=== PATIENT | male | born 1960 | race Caucasian/White ===

== ENCOUNTER 2016-05-30 18:04 | Inpatient (IN) | payer OTHER ==
[~2016-05-30] VITALS: Ht 175.3 cm; Wt 88.9 kg
[2016-05-30 18:43] LABS: RED BLOOD COUNT 4.77 M/UL (4.20-5.50); WHITE BLOOD COUNT 16.9 K/UL (4.5-11.0)
[2016-05-30 19:19] LABS: BUN/CREATININE RATIO 11 (0-10)
[2016-05-30] MEDS ORDERED: ZYRTEC10 MG PO (23:13)
[2016-05-30] MEDS ORDERED: LIPITOR TAB 1010 MG PO (23:14)
[2016-05-30] MEDS ORDERED: SINGULAIR10 MG PO (23:14)
[2016-05-30] MEDS ORDERED: METFORMIN HCL500 MG PO (23:14)
[2016-05-30] MEDS ORDERED: PRILOSEC OTC20 MG PO (23:15)
[2016-05-30] MEDS ORDERED: SYNTHROID 50 M50 MCG PO (23:17)
[2016-05-30] MEDS ORDERED: ASPIRIN CHEWABL81 MG PO (23:19)
[2016-05-31 05:16] LABS: HEMOGLOBIN 13.1 gm/dl (14.0-17.5); RED BLOOD COUNT 4.46 M/UL (4.20-5.50)
[2016-05-31 05:54] LABS: BUN/CREATININE RATIO 15 (0-10)
[2016-05-31 19:41] LABS: HEMOGLOBIN 12.1 gm/dl (14.0-17.5); RED BLOOD COUNT 4.11 M/UL (4.20-5.50); WHITE BLOOD COUNT 12.3 K/UL (4.5-11.0)
[2016-05-31 20:01] LABS: BUN/CREATININE RATIO 16 (0-10)
[2016-06-01 04:54] LABS: HEMOGLOBIN 11.7 gm/dl (14.0-17.5); RED BLOOD COUNT 4.03 M/UL (4.20-5.50); WHITE BLOOD COUNT 10.6 K/UL (4.5-11.0)
[2016-06-01 05:55] LABS: BUN/CREATININE RATIO 17 (0-10)
[2016-06-01] MEDS ORDERED: LOPRESSOR 25 MG25 MG PO (11:07)
[2016-06-01] MEDS ORDERED: LISINOPRIL5 MG PO (11:08)
[2016-06-01] MEDS ORDERED: BRILINTA90 MG PO (11:09)
== END 2016-06-01 11:56 | disposition home or self-care (01) | DRG 247 ==
LOC: ER1 18:04 → ZEROF 18:26 → CCU 18:26
PROVIDERS: Emergency Medicine; Internal Medicine; ADMIT Internal Medicine
PROC: 027034Z Dilation of Coronary Artery, One Artery with Drug-eluting Intraluminal Device, Percutaneous Approach (ICD-10-PCS; principal; 2016-05-31)
PROC: 02C03ZZ Extirpation of Matter from Coronary Artery, One Artery, Percutaneous Approach (ICD-10-PCS; 2016-05-31)
PROC: 4A023N7 Measurement of Cardiac Sampling and Pressure, Left Heart, Percutaneous Approach (ICD-10-PCS; 2016-05-31)
PROC: B2111ZZ Fluoroscopy of Multiple Coronary Arteries using Low Osmolar Contrast (ICD-10-PCS; 2016-05-31)
PROC: B2151ZZ Fluoroscopy of Left Heart using Low Osmolar Contrast (ICD-10-PCS; 2016-05-31)
DX: I21.19 ST elevation (STEMI) myocardial infarction involving other coronary artery of inferior wall (principal); I25.110 Atherosclerotic heart disease of native coronary artery with unstable angina pectoris; E11.9 Type 2 diabetes mellitus without complications; I10 Essential (primary) hypertension; E78.5 Hyperlipidemia, unspecified; E03.9 Hypothyroidism, unspecified; D72.829 Elevated white blood cell count, unspecified; E66.9 Obesity, unspecified; Z68.28 Body mass index [BMI] 28.0-28.9, adult; Z87.891 Personal history of nicotine dependence; Z72.3 Lack of physical exercise; Z79.84 Long term (current) use of oral hypoglycemic drugs; Z79.82 Long term (current) use of aspirin; Z79.899 Other long term (current) drug therapy; Z82.49 Family history of ischemic heart disease and other diseases of the circulatory system
CPT/HCPCS: ECHO; 36415; 71010; 80048; 80053; 80061; 82550; 82553; 82962; 83036; 83735; 83874; 84443; 84484; 85025; 85027; 85610; 85730; 93005; 93306; 96374; 96375; 96376; 99291; C1725; C1757; C1769; C1874; C1887; C1894; C9600; J0583; J1644; J1650; J2250; J2270; J2370; J2405; J3010; J7030; Q9963; Q9965

== ENCOUNTER 2016-07-27 12:07 | Emergency (ER) | payer OTHER ==
[~2016-07-27 12:07] MED LIST: ASPIRIN CHEWABL81 MG PO; BRILINTA90 MG PO; LIPITOR TAB 1010 MG PO; LISINOPRIL5 MG PO; LOPRESSOR 25 MG25 MG PO; METFORMIN HCL500 MG PO; PRILOSEC OTC20 MG PO; SINGULAIR10 MG PO; SYNTHROID 50 M50 MCG PO; ZYRTEC10 MG PO
[2016-07-27 13:51] LABS: HEMOGLOBIN 13.5 gm/dl (14.0-17.5); RED BLOOD COUNT 4.73 M/UL (4.20-5.50); WHITE BLOOD COUNT 5.7 K/UL (4.5-11.0)
[2016-07-27 14:08] LABS: BUN/CREATININE RATIO 18 (0-10)
== END 2016-07-27 15:15 | disposition home or self-care (01) ==
LOC: ER1 12:07
PROVIDERS: Emergency Medicine
DX: K92.1 Melena (principal); I25.10 Atherosclerotic heart disease of native coronary artery without angina pectoris
CPT/HCPCS: 36415; 80048; 82272; 85025; 85610; 85730; 99283

== ENCOUNTER → 2021-08-16 | Outpatient (CLI) | payer OTHER ==
[~2021-08-16] MED LIST changes: +AUGMENTIN 875-1 EACH PO; +IRON325 M1 PO; +NORCO 5-325 TA1 EACH PO; +VITAMIN D-32000 UNIT PO
== END ==
LOC: HEART 5 07:45
DX: R06.02 Shortness of breath (principal); I25.119 Atherosclerotic heart disease of native coronary artery with unspecified angina pectoris
CPT/HCPCS: 78452; A9502; J2785

== ENCOUNTER → 2021-10-01 | Outpatient (CLI) | payer OTHER | LOC: KOH-I 09:53 | DX: M79.672 Pain in left foot (principal); S92.352A Displaced fracture of fifth metatarsal bone, left foot, initial encounter for closed fracture | CPT/HCPCS: 73630 ==

== ENCOUNTER → 2021-10-29 | Outpatient (CLI) | payer OTHER | LOC: KOH-I 13:41 | DX: S92.352K Displaced fracture of fifth metatarsal bone, left foot, subsequent encounter for fracture with nonunion (principal) | CPT/HCPCS: 73630 ==